=== PATIENT | female | born 1935 | race Caucasian/White ===

== ENCOUNTER → 2019-10-27 | Outpatient (CLI) | payer MEDICARE, MEDICAID ==
--- NOTE | 2019-10-27 16:53 | Diagnostic Imaging Report ---
INDICATION: Pain status post fall. COMPARISON: None. EXAMINATION: Three radiographic views of the left hand were obtained. FINDINGS: There is compression deformity involving the dorsal proximal margins of the 1st proximal phalanx. There is no prior available for comparison. Note is also made of acute appearing minimally displaced fracture involving the distal lateral corner of the included portions of the radius. There is probable intra-articular extension. Radiocarpal joint space is not included on the lateral view. Joint space is otherwise maintained. No unexpected radiopaque foreign body is seen. IMPRESSION: 1. Acute intra-articular fracture of the distal left radius. Dedicated evaluation with wrist radiographs and/or CT is recommended to assess radiocarpal joint space. 2. Deformity of the proximal margins of the 1st proximal phalanx is also concerning for acute fracture. This area could be included on CT for further assessment as well. Dictated by: Dictated on workstation # [id number]
--- NOTE | 2019-10-27 17:53 | Diagnostic Imaging Report ---
INDICATION: Fall with pain and swelling. Bruising to left knee. FINDINGS: The patient has overall low bone mineral density which limits the overall sensitivity of this examination. There are no findings, however, by plain radiography to suggest an acute fracture. No cortical disruption evident or evidence of depression of the tibial plateaus. There are advanced tricompartmental osteoarthritic changes present. Note is made of chondrocalcinosis within both of the menisci. There are arterial calcifications. There is no significant joint effusion evident. There does appear to be prepatellar soft tissue swelling. IMPRESSION: Prepatellar soft tissue swelling with background features of low bone mineral density and tricompartmental osteoarthritis. There also are findings of chondrocalcinosis within the menisci. The low bone mineral density limits the sensitivity of this examination but there are no plain film findings of cortical disruption or depression of the tibial plateaus. There is no significant knee joint effusion. Dictated by: Dictated on workstation # [id number]
== END ==
LOC: RAD FS 15:02
PROVIDERS: ATTEND Nurse Practitioner
DX: S80.02XA Contusion of left knee, initial encounter (principal); S62.512A Displaced fracture of proximal phalanx of left thumb, initial encounter for closed fracture; W19.XXXA Unspecified fall, initial encounter
CPT/HCPCS: 73140; 73562

== ENCOUNTER → 2019-11-10 | Outpatient (CLI) | payer MEDICARE, MEDICAID ==
--- NOTE | 2019-11-10 09:17 | Diagnostic Imaging Report ---
EXAMINATION: Left wrist at 837h. INDICATION: Fracture of the thumb 3 views were obtained. Reportedly the patient has suffered a fracture of the proximal phalanx of the thumb. There are no prior studies available for comparison. There does appear to be a slightly impacted essentially nondisplaced fracture of the base of the proximal phalanx of the thumb. There also appears to be a slightly impacted essentially nondisplaced fracture of the distal radial metaphysis. There is healing callus formation about the fracture site. No other fracture or acute bony abnormality is identified. However much of the hand, the carpal bones and the wrist are obscured by a fiberglass cast. IMPRESSION: 1. There are slightly impacted essentially nondisplaced healing fractures of the base of the proximal phalanx of the thumb and of the distal radial metaphysis. There is no acute bony abnormality noted. 2. If previous exams are available they would be helpful for comparison. Dictated by: Dictated on workstation # [id number]
== END ==
LOC: RAD FS 08:31
PROVIDERS: ATTEND Nurse Practitioner
DX: S62.515D Nondisplaced fracture of proximal phalanx of left thumb, subsequent encounter for fracture with routine healing (principal); X58.XXXD Exposure to other specified factors, subsequent encounter
CPT/HCPCS: 73110

== ENCOUNTER → 2019-12-01 | Outpatient (CLI) | payer MEDICARE, MEDICAID ==
--- NOTE | 2019-12-01 09:45 | Diagnostic Imaging Report ---
INDICATION: Left wrist fracture, follow-up. Time of exam: 9:28 AM Correlation is made with prior radiograph from 11/10/2019. Impacted fracture of the distal radius is again noted. Fracture lines remain visible. There is some sclerosis present consistent with some healing. Alignment is anatomic. Distal ulna is intact. There is generalized demineralization of the hand and carpus. IMPRESSION: Healing distal radius fracture. Fracture line does remain partially visible, however. Dictated by: Dictated on workstation # [id number]
== END ==
LOC: RAD FS 09:08
PROVIDERS: ATTEND Nurse Practitioner
DX: S52.515D Nondisplaced fracture of left radial styloid process, subsequent encounter for closed fracture with routine healing (principal); X58.XXXD Exposure to other specified factors, subsequent encounter
CPT/HCPCS: 73110

== ENCOUNTER 2020-07-08 19:41 | Emergency (ER) | payer MEDICARE, MEDICAID ==
[~2020-07-08] VITALS: Ht 149.8 cm; Wt 83.9 kg
--- NOTE | 2020-07-08 19:48 | ED Fall/Injury ---
General Stated Complaint: FELL INJURED RIGHT SHOULDER History of Present Illness Date Seen by Provider: July 08, 2020 Time Seen by Provider: 19:48 Initial Comments 85-year-old female presents following a fall. Patient was in her kitchen when she tripped over a box. Patient is on blood thinners and believes she hit her head. She might of had some slight loss of consciousness. Patient's main complaint is right shoulder pain. It is diffuse throughout the shoulder. She has limited and painful range of motion. She has some ecchymosis on the posterior aspect of the shoulder. Some mild swelling and tenderness to the generalized shoulder area. Allergies and Home Medications Allergies Coded Allergies: Penicillins (Verified Allergy, Unknown, 07/08/20) Home Medications Hydrocodone/Acetaminophen 1 Each Tablet, 0.5 TAB PO Q6H PRN for PAIN-MODERATE (5-7) Prescribed by: CATHY GARZA on 07/08/202019 Patient Home Medication List Home Medication List Reviewed: Yes Review of Systems Review of Systems Constitutional: No chills, No fever Eyes: No Symptoms Reported Ears, Nose, Mouth, Throat: see HPI Respiratory: no symptoms reported Cardiovascular: no symptoms reported Gastrointestinal: no symptoms reported Genitourinary: no symptoms reported Skin: see HPI Past Nfeqdua-Jrkmtu-Ddpbyl Hx Past Med/Social Hx: Reviewed Nursing Past Med/Soc Hx Physical Exam Vital Signs Vital Signs - First Documented 07/08/20 19:50 Temp 36.2 Pulse 82 Resp 16 B/P (MAP) 116/65 (82) Pulse Ox 92 O2 Delivery Room Air Capillary Refill : Height, Weight, BMI Height: '" Weight: lbs. oz. kg; BMI Method: General Appearance: no apparent distress Neck: supple, normal inspection Cardiovascular: normal peripheral pulses, regular rate, rhythm Respiratory: lungs clear Gastrointestinal: non tender, soft Extremities: other (Generalized pain, tenderness and decreased motion of the right shoulder area. Generalized swelling, tender to the humeral head) Neurologic/Psychiatric: alert, normal mood/affect, oriented x 3 Progress/Results/Core Measures Results/Orders My Orders Orders - CATHY GARZA DO Shoulder 2 View Right (07/08/20 19:51) Ct Head Wo (07/08/20 19:55) Shoulder Immoblizer (07/08/20 20:13) Hydrocodone/Apap 5/325 Tablet (Lortab 5 (07/08/20 20:15) Vital Signs/I&O 07/08/20 19:50 Temp 36.2 Pulse 82 Resp 16 B/P (MAP) 116/65 (82) Pulse Ox 92 O2 Delivery Room Air Progress Progress Note : Progress Note Patient with comminuted impacted humeral head fracture. Patient was placed in a shoulder immobilizer. She will call orthopedic surgeon tomorrow for outpatient follow-up Diagnostic Imaging Diagonstic Imaging: Xray Plain Films/CT/US/NM/MRI: other (Shoulder ) Comments SHOULDER 2 VIEW RIGHT EXAMINATION: Right shoulder radiographs, 3 views. COMPARISON: None. HISTORY: 85-year-old female, fall. Right shoulder pain. FINDINGS: There is a mildly displaced comminuted multipart proximal humerus fracture involving at least the humeral neck and greater tuberosity. The humeral head is normally positioned relative to the glenoid. The acromioclavicular joint is normally aligned. There are no prominent acromioclavicular degenerative changes. IMPRESSION: Comminuted mildly displaced multipart fracture of the right proximal humerus involving at least the humeral neck and greater tuberosity. Reviewed: Reviewed by Me, Reviewed/Discussed Diagonstic Imaging: CT Plain Films/CT/US/NM/MRI: head Comments CT HEAD WO PROCEDURE: CT head without contrast. TECHNIQUE: Multiple contiguous axial images were obtained through the brain without the use of intravenous contrast. Auto Exposure Controls were utilized during the CT exam to meet ALARA standards for radiation dose reduction. INDICATION: Fall. COMPARISON: None available. FINDINGS: Moderate atrophy. 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 No intracranial hemorrhage. No intracranial mass, mass effect, midline shift, herniation, hydrocephalus or extra-axial fluid collection. No CT evidence of an acute ischemic infarction. The orbits are unremarkable. The paranasal sinuses are clear. The calvarium and extracalvarial soft tissues are unremarkable. IMPRESSION: No acute intracranial abnormality with moderate background atrophy Departure Impression Primary Impression: Fracture of humeral head, right, closed Qualified Codes: S42.291A - Other displaced fracture of upper end of right humerus, initial encounter for closed fracture Additional Impressions: Fall Qualified Codes: W19.XXXA - Unspecified fall, initial encounter Head contusion Qualified Codes: S00.93XA - Contusion of unspecified part of head, initial encounter Disposition: 01 HOME, SELF-CARE Condition: Stable Departure-Patient Inst. Referrals: ZEE VILLALPANDO MD (PCP/Family) Primary Care Physician Patient Instructions: Shoulder Fracture, Minor Head Injury, Adult ED Add. Discharge Instructions: Please call Raghav Blanca tomorrow morning to arrange for an appointment sometime next week Wear shoulder immobilizer except for when changing clothes or bathing Scripts Hydrocodone/Acetaminophen (Hydrocodone-Acetamin 5-325 mg) 1 Each Tablet 0.5 TAB PO Q6H PRN for PAIN-MODERATE (5-7), #5 TAB Prov: CATHY GARZA DO 07/08/20 CATHY GARZA DO July 08, 2020 19:48
[2020-07-08 19:50] VITALS: BP 116/65
[2020-07-08] MEDS ORDERED: HYDROcodone/APAP 5 MG/325 MG (LORTAB) TAB PO ONE (20:15)
--- NOTE | 2020-07-08 20:16 | Diagnostic Imaging Report ---
EXAMINATION: Right shoulder radiographs, 3 views. COMPARISON: None. HISTORY: 85-year-old female, fall. Right shoulder pain. FINDINGS: There is a mildly displaced comminuted multipart proximal humerus fracture involving at least the humeral neck and greater tuberosity. The humeral head is normally positioned relative to the glenoid. The acromioclavicular joint is normally aligned. There are no prominent acromioclavicular degenerative changes. IMPRESSION: Comminuted mildly displaced multipart fracture of the right proximal humerus involving at least the humeral neck and greater tuberosity. Dictated by: Dictated on workstation # [id number]
[2020-07-08] MEDS ORDERED: ACHD5005 PO (20:18)
--- NOTE | 2020-07-08 20:18 | Diagnostic Imaging Report ---
PROCEDURE: CT head without contrast. TECHNIQUE: Multiple contiguous axial images were obtained through the brain without the use of intravenous contrast. Auto Exposure Controls were utilized during the CT exam to meet ALARA standards for radiation dose reduction. INDICATION: Fall. COMPARISON: None available. FINDINGS: Moderate atrophy. 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 No intracranial hemorrhage. No intracranial mass, mass effect, midline shift, herniation, hydrocephalus or extra-axial fluid collection. No CT evidence of an acute ischemic infarction. The orbits are unremarkable. The paranasal sinuses are clear. The calvarium and extracalvarial soft tissues are unremarkable. IMPRESSION: No acute intracranial abnormality with moderate background atrophy. Dictated by: Dictated on workstation # [id number]
== END 2020-07-08 20:29 | disposition home or self-care (01) ==
LOC: EDUNIT# 19:41 → ER FS 19:44
DX: S42.251A Displaced fracture of greater tuberosity of right humerus, initial encounter for closed fracture (principal); S42.291A Other displaced fracture of upper end of right humerus, initial encounter for closed fracture; S00.93XA Contusion of unspecified part of head, initial encounter; W01.198A Fall on same level from slipping, tripping and stumbling with subsequent striking against other object, initial encounter; Y92.000 Kitchen of unspecified non-institutional (private) residence as the place of occurrence of the external cause
CPT/HCPCS: 70450; 73030; 99283; L3650

== ENCOUNTER → 2020-08-16 | Outpatient (CLI) | payer MEDICARE, MEDICAID ==
[~2020-08-16] MED LIST: ACHD5005 PO
--- NOTE | 2020-08-16 17:16 | Diagnostic Imaging Report ---
INDICATION: Follow-up right shoulder fracture AP, oblique, and transscapular views of the right shoulder are obtained and compared with 07/23/2020. Comminuted humeral neck fracture is again seen with the no change in the amount of displacement compared to the prior study. There is no dislocation. AC joint shows degenerative change. There is callus formation of the proximal humeral fracture IMPRESSION: 1. Stable alignment of humeral neck and head fracture with some callus formation. No dislocation. 2. No new finding otherwise. Dictated by: Dictated on workstation # [id number]
== END ==
LOC: LAB FS 13:12
PROVIDERS: ATTEND Nurse Practitioner
DX: S42.231D 3-part fracture of surgical neck of right humerus, subsequent encounter for fracture with routine healing (principal); X58.XXXD Exposure to other specified factors, subsequent encounter
CPT/HCPCS: 73030

== ENCOUNTER → 2020-09-06 | Outpatient (CLI) | payer MEDICARE, MEDICAID ==
--- NOTE | 2020-09-06 09:37 | Diagnostic Imaging Report ---
INDICATION: Right shoulder fracture followup. 4 views of the right shoulder show fracture through the neck and humerus with calcified callus present. There is mild impaction and displacement which is stable compared to the 08/16/2020 study. Healing is incomplete. IMPRESSION: Stable right shoulder fracture. Dictated by: Dictated on workstation # [id number]
== END ==
LOC: RAD FS 09:12
PROVIDERS: ATTEND Nurse Practitioner
DX: S42.231D 3-part fracture of surgical neck of right humerus, subsequent encounter for fracture with routine healing (principal); X58.XXXD Exposure to other specified factors, subsequent encounter
CPT/HCPCS: 73030

== ENCOUNTER → 2021-06-26 | Outpatient (CLI) | payer MEDICARE, MEDICAID ==
--- NOTE | 2021-06-26 15:09 | Diagnostic Imaging Report ---
INDICATION: Followup fractures. COMPARISON: 12/01/2019 FINDINGS: Frontal and lateral views left wrist were obtained. Evaluation is partially obscured secondary to overlying radiopaque cast material. Age-indeterminate fracture deformities of the distal radius and ulna are identified. There is suggestion of resorption abutting the fracture lines. There is no recent prior available for comparison. No unexpected radiopaque foreign bodies are seen. IMPRESSION:. Age-indeterminate fractures of the distal left radius and ulna as above. Dictated by: Dictated on workstation # [id number]
== END ==
LOC: RAD FS 11:14
PROVIDERS: ATTEND Nurse Practitioner
DX: S52.592D Other fractures of lower end of left radius, subsequent encounter for closed fracture with routine healing (principal); S52.602D Unspecified fracture of lower end of left ulna, subsequent encounter for closed fracture with routine healing; X58.XXXD Exposure to other specified factors, subsequent encounter
CPT/HCPCS: 73100

== ENCOUNTER → 2021-07-12 | Outpatient (CLI) | payer MEDICARE, MEDICAID ==
--- NOTE | 2021-07-12 10:11 | Diagnostic Imaging Report ---
INDICATION: Fracture follow-up, pain. COMPARISON: June 26, 2021 TECHNIQUE: Two radiographs of the left wrist dated 07/12/2021. FINDINGS: Cast material is again identified which slightly limits evaluation of underlying osseous structures. Previously noted distal radial and distal ulnar fractures are again identified. Overall alignment is stable from the prior examination. There is suggestion of minimal developing periosteal reaction associated with the distal ulnar fracture. Developing sclerosis is also noted associated with the distal radial fracture. No new fracture or dislocation. No suspicious radiopaque foreign body. IMPRESSION: Casted distal radial and ulnar fractures remain in stable alignment with minimal healing of previously noted distal ulnar and radial fractures noted. No new acute osseous abnormality. Dictated by: Dictated on workstation # [id number]
== END ==
LOC: RAD FS 09:35
PROVIDERS: ATTEND Nurse Practitioner
DX: S52.602D Unspecified fracture of lower end of left ulna, subsequent encounter for closed fracture with routine healing (principal); S52.592D Other fractures of lower end of left radius, subsequent encounter for closed fracture with routine healing; X58.XXXD Exposure to other specified factors, subsequent encounter
CPT/HCPCS: 73100

== ENCOUNTER → 2021-08-02 | Outpatient (CLI) | payer MEDICARE, MEDICAID ==
--- NOTE | 2021-08-02 11:00 | Diagnostic Imaging Report ---
Indication: Follow-up fractures. COMPARISON: 07/12/2021 FINDINGS: Frontal and lateral Views of the left wrist were obtained. Again identified are nonacute fractures of the distal radius and ulna. Fracture fragments are in stable alignment. Since previous exam, there has been interval progression of partially bridging callus formation. No new acute osseous abnormality is seen. Joint spaces are maintained. No unexpected radiopaque foreign bodies are identified. IMPRESSION: 1. Redemonstration partially healed fractures of the left wrist as above. Dictated by: Dictated on workstation # [id number]
== END ==
LOC: RAD FS 10:13
PROVIDERS: ATTEND Nurse Practitioner
DX: S52.602D Unspecified fracture of lower end of left ulna, subsequent encounter for closed fracture with routine healing (principal); X58.XXXD Exposure to other specified factors, subsequent encounter
CPT/HCPCS: 73100